=== PATIENT | female | born 1965 ===

== ENCOUNTER 2016-08-10 07:33 | Day surgery (SDC) | payer MEDICAID ==
[2016-08-10] MEDS ORDERED: Lactated Ringer's 500 ML IV ONE (09:04)
[2016-08-10] MEDS ORDERED: Propofol 10 mg/ml Inj (20 ML) ONE (10:25)
[2016-08-10 11:20] VITALS: TEMP 97
[2016-08-10 11:21] VITALS: BP 110/70; PULSE 64; RESP 16; O2SAT 98
== END 2016-08-10 13:49 | disposition home or self-care (01) ==
LOC: H.ENDO 07:33
PROVIDERS: ATTEND Internal Medicine Gastroenterology
DX: Z12.11 Encounter for screening for malignant neoplasm of colon (principal); K64.8 Other hemorrhoids; K30 Functional dyspepsia; K44.9 Diaphragmatic hernia without obstruction or gangrene; K31.9 Disease of stomach and duodenum, unspecified; B96.81 Helicobacter pylori [H. pylori] as the cause of diseases classified elsewhere